=== PATIENT | female | born 1960 | race Native Hawaiian/Other Pacific Islander ===

== ENCOUNTER 2023-01-25 12:16 | Outpatient (CLI) | payer OTHER | END 2023-01-25 20:47 | disposition home or self-care (01) | LOC: RAD 12:16 | PROVIDERS: ATTEND Internal Medicine | DX: S39.012A Strain of muscle, fascia and tendon of lower back, initial encounter (principal); Y92.89 Other specified places as the place of occurrence of the external cause ==

== ENCOUNTER 2023-06-23 09:41 | Outpatient (CLI) | payer OTHER | END 2023-06-23 19:27 | disposition home or self-care (01) | LOC: CT 09:41 | PROVIDERS: ATTEND Internal Medicine | DX: R10.9 Unspecified abdominal pain (principal) | CPT/HCPCS: 36415; 82565; 84520; Q9963 ==